=== PATIENT | male | born 1985 | race Caucasian/White ===

== ENCOUNTER 2019-04-16 22:31 | Emergency (ER) | payer SELFPAY ==
[~2019-04-16] VITALS: Ht 167 cm; Wt 90.1 kg
[~2019-04-16 22:31] MED LIST: BSP10T PO; CLIN300C3 PO; GABA-488 PO; GABAPENTIN; IBUP-30 PO; METH4TAB PO; SERT50TA PO; SULF1TAB38 PO; TRAM-21 PO; ZPR20C PO
[2019-04-16 23:00] LABS: BILIRUBIN,URINE NEGATIVE (NEGATIVE); CLARITY,URINE CLEAR; COLOR,URINE YELLOW; GLUCOSE, URINE (UA) NEGATIVE (NEGATIVE); KETONES,URINE NEGATIVE (NEGATIVE); LEUKOCYTE ESTERASE ,URINE NEGATIVE (NEGATIVE); NITRITE,URINE NEGATIVE (NEGATIVE); PROTEIN,URINE NEGATIVE (NEGATIVE)
[2019-04-16 23:08] LABS: BASOPHILS % (AUTO) 0 % (0-10); EOSINOPHILS # (AUTO) 0.4 10^3/uL (0.0-0.3); EOSINOPHILS % (AUTO) 6 % (0-10); HEMATOCRIT 43 % (40-54); HEMOGLOBIN 14.6 G/DL (13.3-17.7); LYMPHOCYTES # (AUTO) 2.8 X 10^3 (1.0-4.0); LYMPHOCYTES % (AUTO) 36 % (12-44); MEAN CORPUSCULAR HEMOGLOBIN 30 PG (25-34); MEAN CORPUSCULAR HGB CONC 34 G/DL (32-36); MEAN CORPUSCULAR VOLUME 88 FL (80-99); MEAN PLATELET VOLUME 11.3 FL (7.4-10.4); MONOCYTES # (AUTO) 0.8 X 10^3 (0.0-1.0); MONOCYTES % (AUTO) 11 % (0-12); NEUTROPHILS # (AUTO) 3.6 X 10^3 (1.8-7.8); NEUTROPHILS % (AUTO) 47 % (42-75); PLATELET COUNT 263 10^3/uL (130-400); RED CELL DISTRIBUTION WIDTH 12.6 % (10.0-14.5); WHITE BLOOD COUNT 7.6 10^3/uL (4.3-11.0)
[2019-04-16] MEDS ORDERED: fentaNYL INJECTION 100 MCG/2 ML AMP IVP ONE (23:15)
[2019-04-16 23:18] LABS: BACTERIA,URINE FEW /HPF; RBC,URINE 0-2 /HPF
[2019-04-16 23:22] LABS: ALANINE AMINOTRANSFERASE 35 U/L (0-55); ALBUMIN 4.7 GM/DL (3.2-4.5); ALKALINE PHOSPHATASE 85 U/L (40-136); BILIRUBIN,TOTAL 0.6 MG/DL (0.1-1.0); BUN/CREATININE RATIO 14; CALCIUM 9.4 MG/DL (8.5-10.1); CARBON DIOXIDE 22 MMOL/L (21-32); CHLORIDE 108 MMOL/L (98-107); CREATININE SERUM 1.11 MG/DL (0.60-1.30); GFR ESTIMATED > 60; GLUCOSE 110 MG/DL (70-105); LIPASE 13 U/L (8-78); SODIUM 142 MMOL/L (135-145); TOTAL PROTEIN 7.1 GM/DL (6.4-8.2)
[2019-04-16] MEDS ORDERED: NS IV 1000 ML 1,000 ML IV SCH (23:29)
[2019-04-17] MEDS ORDERED: KETOROLAC 30 MG/ML VIAL IVP ONE (00:15)
[2019-04-17] MEDS ORDERED: CEPHALEXIN 250 MG (KEFLEX) CAP PO ONE (00:15)
[2019-04-17] MEDS ORDERED: TRAM-42 PO (00:16)
[2019-04-17] MEDS ORDERED: CEPH-507 PO (00:16)
--- NOTE | 2019-04-17 00:16 | ED Abdominal Pain ---
General Chief Complaint: Abdominal/GI Problems Stated Complaint: ABD PAIN Nursing Triage Note: Pt ambulates to [facility] 5 with c/o RUQ abd pain x 1 wk. Pt has Hx of gall stones and states he was told he needed to get them removed but hasn't yet. Pt denies any N/V, fever/chills, or changes in urine, reports diarrhea today. Sepsis Screen: No Definite Risk Source of Information: Patient Exam Limitations: No Limitations History of Present Illness Date Seen by Provider: Apr 16, 2019 Time Seen by Provider: 22:36 Initial Comments This 34-year-old man presents to the emergency room with complaints of right upper quadrant pain radiating to his back. He has known history of gallbladder problems. CT scan in 2014 revealed pericholecystic fluid and could not rule out cholecystitis. Patient ate [place] food 2-3 hours prior to arrival. Pain started shortly after that. He denies any nausea or vomiting. He has had diarrhea. He reports pain is 8 out of 10. He denies any alcohol or drug use. He does smoke. He is afebrile. He does not follow with a primary care provider and has not seen a surgeon regarding his gallbladder. Allergies and Home Medications Allergies Coded Allergies: No Known Drug Allergies (Verified , 04/15/09) Home Medications Cephalexin 500 Mg Capsule, 500 MG PO BID Prescribed by: CONRADO MCGEE on 04/17/1915 Clindamycin Hcl 300 Mg Capsule, 1 EACH PO QID Prescribed by: YOSVANY JAQUEZ on 10/25/14 0953 Ibuprofen 200 Mg Tablet, 400 MG PO TID PRN for PAIN, (Reported) TAKES 2 (200MG) TABLETS Tramadol HCl 50 Mg Tablet, 50 MG PO Q6H PRN for PAIN-MODERATE (5-7) Prescribed by: CONRADO MCGEE on 04/17/1915 Patient Home Medication List Home Medication List Reviewed: Yes Review of Systems Review of Systems Constitutional: no symptoms reported EENTM: No Symptoms Reported Respiratory: No Symptoms Reported Cardiovascular: No Symptoms Reported Gastrointestinal: See HPI Genitourinary: No Symptoms Reported Musculoskeletal: no symptoms reported Skin: no symptoms reported Psychiatric/Neurological: No Symptoms Reported Endocrine: No Symptoms Reported Hematologic/Lymphatic: No Symptoms Reported Past Xxkjfwf-Nbcswa-Jsgtey Hx Past Med/Social Hx: Reviewed Nursing Past Med/Soc Hx Patient Social History Alcohol Use: Denies Use Recreational Drug Use: No Smoking Status: Current Everyday Smoker Recent Foreign Travel: No Contact w/Someone Who Travel: No Recent Infectious Disease Expo: No Immunizations Up To Date Tetanus Booster (TDap): Less than 5yrs PED Vaccines UTD: No Past Medical History Surgeries: Yes (cranial surgery due to traumatic brain injury) Respiratory: No Cardiac: No Neurological: Yes Traumatic Brain Injury Reproductive Disorders: No Sexually Transmitted Disease: No HIV/AIDS: No Genitourinary: No Gastrointestinal: Yes Gall Bladder Disease Musculoskeletal: No Endocrine: No HEENT: No Cancer: No Psychosocial: No Adverse Reaction/Blood Tranf: No (No hx of transfusion.) Family Medical History Colitis in mother 19 MOTHER, Onset: - FH: Crohn's disease 19 MOTHER, Onset: - No Pertinent Family Hx Physical Exam Vital Signs Vital Signs - First Documented 04/16/19 22:41 Temp 35.7 Pulse 68 Resp 20 B/P (MAP) 173/102 (125) Pulse Ox 99 O2 Delivery Room Air Capillary Refill : Less Than 3 Seconds Height/Weight/BMI Height: 5'5.00" Weight: 188lbs. 0.2oz. 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, no motor/sensory deficits, alert, normal mood/affect, oriented x 3 Skin: normal color, warm/dry Progress/Results/Core Measures Results/Orders Lab Results Laboratory Tests Test 04/16/19 22:43 04/16/19 22:50 Range/Units Urine Color YELLOW Urine Clarity CLEAR Urine pH 6.0 5-9 Urine Specific [place] >=1.030 1.016-1.022 Urine Protein NEGATIVE NEGATIVE Urine Glucose (UA) NEGATIVE NEGATIVE Urine Ketones NEGATIVE NEGATIVE Urine Nitrite NEGATIVE NEGATIVE Urine Bilirubin NEGATIVE NEGATIVE Urine Urobilinogen 0.2 < = 1.0 MG/DL Urine Leukocyte Esterase NEGATIVE NEGATIVE Urine RBC (Auto) NEGATIVE NEGATIVE Urine RBC 0-2 /HPF Urine WBC 10-25 H /HPF Urine Squamous Epithelial Cells NONE /HPF Urine Crystals NONE /LPF Urine Bacteria FEW H /HPF Urine Casts NONE /LPF Urine Mucus MODERATE H /LPF Urine Culture Indicated YES White Blood Count 7.6 4.3-11.0 10^3/uL Red Blood Count 4.85 4.35-5.85 10^6/uL Hemoglobin 14.6 13.3-17.7 G/DL Hematocrit 43 40-54 % Mean Corpuscular Volume 88 80-99 FL Mean Corpuscular Hemoglobin 30 25-34 PG Mean Corpuscular Hemoglobin Concent 34 32-36 G/DL Red Cell Distribution Width 12.6 10.0-14.5 % Platelet Count 263 130-400 10^3/uL Mean Platelet Volume 11.3 H 7.4-10.4 FL Neutrophils (%) (Auto) 47 42-75 % Lymphocytes (%) (Auto) 36 12-44 % Monocytes (%) (Auto) 11 0-12 % Eosinophils (%) (Auto) 6 0-10 % Basophils (%) (Auto) 0 0-10 % Neutrophils # (Auto) 3.6 1.8-7.8 X 10^3 Lymphocytes # (Auto) 2.8 1.0-4.0 X 10^3 Monocytes # (Auto) 0.8 0.0-1.0 X 10^3 Eosinophils # (Auto) 0.4 H 0.0-0.3 10^3/uL Basophils # (Auto) 0.0 0.0-0.1 10^3/uL Sodium Level 142 135-145 MMOL/L Potassium Level 4.0 3.6-5.0 MMOL/L Chloride Level 108 H 98-107 MMOL/L Carbon Dioxide Level 22 21-32 MMOL/L Anion Gap 12 5-14 MMOL/L Blood Urea Nitrogen 16 7-18 MG/DL Creatinine 1.11 0.60-1.30 MG/DL Estimat Glomerular Filtration Rate > 60 BUN/Creatinine Ratio 14 Glucose Level 110 H 70-105 MG/DL Calcium Level 9.4 8.5-10.1 MG/DL Corrected Calcium 8.5-10.1 MG/DL Total Bilirubin 0.6 0.1-1.0 MG/DL Aspartate Amino Transf (AST/SGOT) 22 5-34 U/L Alanine Aminotransferase (ALT/SGPT) 35 0-55 U/L Alkaline Phosphatase 85 40-136 U/L C-Reactive Protein High Sensitivity 0.33 0.00-0.50 MG/DL Total Protein 7.1 6.4-8.2 GM/DL Albumin 4.7 H 3.2-4.5 GM/DL Lipase 13 8-78 U/L My Orders Orders - CONRADO WRIGHT MD Ua Culture If Indicated (04/16/19 22:36) Cbc With Automated Diff (04/16/19 23:03) Comprehensive Metabolic Panel (04/16/19 23:03) Hs C Reactive Protein (04/16/19 23:03) Lipase (04/16/19 23:03) Ed Iv/Invasive Line Start (04/16/19 23:03) Fentanyl Injection (Sublimaze Injection (04/16/19 23:15) Urine Culture (04/16/19 22:43) Ns Iv 1000 Ml (Sodium Chloride 0.9%) (04/16/19 23:29) Cephalexin Capsule (Keflex Capsule) (04/17/19 00:15) Ketorolac Injection (Toradol Injection) (04/17/19 00:15) Medications Given in ED Current Medications Medications Dose Ordered Sig/[place] Route Start Time Stop Time Status Last Admin Dose Admin Cephalexin HCl 500 mg ONCE ONCE PO 04/17/19 00:15 04/17/19 00:16 DC 04/17/19 00:27 500 MG Fentanyl Citrate 75 mcg ONCE ONCE IVP 04/16/19 23:15 04/16/19 23:16 DC 04/16/19 23:22 75 MCG Ketorolac Tromethamine 30 mg ONCE ONCE IVP 04/17/19 00:15 04/17/19 00:16 DC 04/17/19 00:28 30 MG Vital Signs/I&O 04/16/19 04/17/19 22:41 00:47 Temp 35.7 35.7 Pulse 68 68 Resp 20 20 B/P (MAP) 173/102 (125) 124/67 (125) Pulse Ox 99 99 O2 Delivery Room Air Room Air Blood Pressure Mean: 125 POS Progress Progress Note : Progress Note Blood pressure improved after treatment with fentanyl. Blood work was unremarkable. UA suggested subtle urinary tract infection. Order form was provided for outpatient ultrasound. Keflex was given for urinary tract infection. Departure Impression Primary Impression: Right upper quadrant pain Additional Impressions: Gallbladder disease Pyuria Disposition: 01 HOME, SELF-CARE Condition: Improved Departure-Patient Inst. Decision time for Depature: 00:13 Referrals: [facility]/MERVAT MICHELLE,LOCAL PHYSICIAN (PCP) Primary Care Physician Patient Instructions: Acute Abdomen (Belly Pain), Adult (DC) Add. Discharge Instructions: Return to hospital registration around 07:30 in the morning for ultrasound. Bring your order form with you. Please stay after the ultrasound until he receive instructions from the ER physician. Do not eat or drink anything until after receiving instructions. You should have an empty stomach for the ultrasound. If cleared from your ultrasound, eat a low fat, low oil diet. Follow-up with a surgeon in a primary care provider soon as possible. Contact information for the [facility] and Dr. Rico (surgeon) is included below. There was suspicion of urinary tract infection in your urinalysis. Please continue antibiotics until your culture results return. Return to the emergency room if you have worsening symptoms. All discharge instructions reviewed with patient and/or family. Voiced understanding. Scripts Cephalexin (Keflex) 500 Mg Capsule 500 MG PO BID, #14 CAP Prov: CONRADO WRIGHT MD 04/17/19 Tramadol HCl (Ultram) 50 Mg Tablet 50 MG PO Q6H PRN for PAIN-MODERATE (5-7), #8 TAB Prov: CONRADO WRIGHT MD 04/17/19 CONRADO WRIGHT MD Apr 17, 2019 00:16 POS
[2019-04-17 00:47] VITALS: BP 124/67
== END 2019-04-17 00:47 | disposition home or self-care (01) ==
LOC: EDUNIT# 22:31 → ER 22:32
DX: K82.9 Disease of gallbladder, unspecified (principal); R82.81 Pyuria; F17.200 Nicotine dependence, unspecified, uncomplicated; Z87.820 Personal history of traumatic brain injury
CPT/HCPCS: 36415; 80053; 81000; 83690; 85025; 86141; 87088

== ENCOUNTER → 2019-04-17 | Outpatient (CLI) | payer SELFPAY ==
[~2019-04-17] MED LIST changes: +CEPH-507 PO; +TRAM-42 PO
--- NOTE | 2019-04-17 09:02 | Diagnostic Imaging Report ---
INDICATION: Right upper quadrant pain x1 week TECHNIQUE: Multiple grayscale sonographic images were obtained of the right upper quadrant of the abdomen. CORRELATION STUDY: None FINDINGS: LIVER: There is uniform echotexture within the visualized portions of the liver. There is normal, hepatopedal direction of flow within the main portal vein. Liver length 17.45 cm GALLBLADDER: There there are no definitive shadowing gallstones, there is a rather prominent asymmetric gallbladder wall thickening at nearly 6 mm. COMMON BILE DUCT: Upper limits of normal at 6 mm. PANCREAS: Visualized portions appearing unremarkable. RIGHT KIDNEY: Measures 10.2 x 3.7 x 5.1 cm. No hydronephrosis. AORTA/IVC: Not well visualized. OTHER: None. IMPRESSION: 1. No definitive shadowing gallstones. While gallbladder does appear to be somewhat contracted, there does appear to be significant gallbladder wall thickening. Findings are nonspecific. If further assessment desired, consideration for nuclear medicine HIDA scan or repeat ultrasound imaging would be recommended. Dictated by: Dictated on workstation # [id number]
== END ==
LOC: RAD 07:46
PROVIDERS: ATTEND Family Medicine
DX: K82.9 Disease of gallbladder, unspecified (principal); R10.11 Right upper quadrant pain
CPT/HCPCS: 76705